=== PATIENT | male | born 1960 | race African-American/Black ===

== ENCOUNTER 2016-04-08 15:32 | Emergency (ER) | payer OTHER ==
[~2016-04-08] VITALS: Ht 188 cm; Wt 104.1 kg
[2016-04-08 15:34] VITALS: BP 177/103; PULSE 83; RESP 12; TEMP 98.3; O2SAT 96
--- NOTE | 2016-04-08 16:11 | PD ---
HPI Chief Complaint: Injury Time Seen by Provider: 16:06 Travel History International Travel<30 days: No Contact w/Intl Traveler<30days: No Traveled to known affect area: No History of Present Illness HPI 55-year-old male presents to the emergency department for evaluation of right small toe injury that occurred today. He states he stubbed it against a curb. He reports chronic right foot pain and sees a sports medicine doctor who prescribes him tramadol. Patient denies any fevers or chills. He states he has a history of hypertension, but is not currently on any medications for this. He states that Tylenol and ibuprofen upset his stomach so he cannot take these and declines an injection of Toradol. However, he is requesting tramadol in the emergency department. No other complaints. [facility] Past Medical History Cardiovascular Problems: Yes (HTN) Hypertension: Yes Social History Alcohol Use: Yes (BEER) Tobacco Use: Yes (1/2 PPD) Substance Use: No Allergies-Medications (Allergen,Severity, Reaction): Coded Allergies: No Known Allergies (Unverified , 04/08/16) Reported Meds & Prescriptions Reported Meds & Active Scripts Active No Active Prescriptions or Reported Medications Review of Systems Except as stated in HPI: all other systems reviewed are Neg Physical Exam Narrative GENERAL: Well-developed well-nourished male patient ambulatory. Afebrile., SKIN: Warm and dry. Small ecchymosis noted to the dorsal aspect of the right fifth toe. HEAD: Normocephalic. Atraumatic. EYES: No scleral icterus. No injection or drainage. NECK: Supple, trachea midline. No JVD or lymphadenopathy. CARDIOVASCULAR: Regular rate and rhythm without murmurs, gallops, or rubs. Right pedal pulses 2+. Capillary refills less than 2 seconds to the digits of the right foot. RESPIRATORY: Breath sounds equal bilaterally. No accessory muscle use. Lungs sounds are clear to auscultation. GASTROINTESTINAL: Abdomen soft, non-tender, nondistended. MUSCULOSKELETAL: No cyanosis, or edema. Patient has tenderness over the right fifth toe. BACK: Nontender without obvious deformity. No CVA tenderness. Data Data Last Documented VS Vital Signs Date Time Temp Pulse Resp B/P Pulse Ox O2 Delivery O2 Flow Rate FiO2 04/08/16 15:34 98.3 83 12 177/103 96 Room Air Orders Foot, Complete ([id number]) (04/08/16 ) [facility] Medical Decision Making Medical Screen Exam Complete: Yes Emergency Medical Condition: Yes Medical Record Reviewed: Yes Interpretation(s) x-ray right foot- CONCLUSION: Negative for fracture. Differential Diagnosis Contusion versus sprain versus fracture versus dislocation Narrative Course 55-year-old male presents to the emergency department for evaluation of right fifth toe injury. X-ray of the right foot is ordered and pending. X-ray of the right foot shows no fracture. Exam is consistent with a toe contusion. He is instructed to ice and elevate and follow up with his doctor. The patient was discharged in stable condition with instructions, including return instructions and follow up instructions. Diagnosis Primary Impression: Contusion, toe Qualified Code: S90.121A - Contusion of lesser toe of right foot without damage to nail, initial encounter Referrals: Primary Care Physician call for appointment Patient Instructions: Contusion in Adults (ED), General Instructions Additional Instructions: Ice for 20 mins on, 20 mins off. Elevate. Follow up with your primary care physician. Return to the emergency department for any acute, worsening of symptoms. Med/Other Pt SpecificInfo: No Change to Meds Scripts No Active Prescriptions or Reported Meds Disposition: 01 DISCHARGE HOME Condition: Stable Sultana Arguello Apr 08, 2016 16:11
--- NOTE | 2016-04-08 16:49 | RADRPT ---
EXAM DATE/TIME: 04/08/2016 16:29 [facility] COMPARISON: No previous studies available for comparison. INDICATIONS : Injured 5th digit of right foot today, pain is only in the 5th digit MEDICAL HISTORY : SURGICAL HISTORY : None. ENCOUNTER: Initial ACUITY: 1 day PAIN SCORE: 7/10 LOCATION: Right foot FINDINGS: Three view examination of the right foot demonstrates no soft tissue swelling, dislocation, or fractu re. The tarsal bones appear intact. The interphalangeal and metatarsophalangeal joints are intact. The calcaneus is intact. Bony mineralization is normal. CONCLUSION: Negative for fracture. Eamon Regan MD FACR on April 08, 2016 at 16:47 Board Certified Radiologist. This report was verified electronically.
== END 2016-04-08 17:08 | disposition home or self-care (01) ==
LOC: NEPB 15:32
DX: S90.121A Contusion of right lesser toe(s) without damage to nail, initial encounter (principal); I10 Essential (primary) hypertension; F17.210 Nicotine dependence, cigarettes, uncomplicated; W22.09XA Striking against other stationary object, initial encounter; Y99.8 Other external cause status
CPT/HCPCS: 73630; 99283

== ENCOUNTER 2017-03-26 12:35 | Emergency (ER) | payer SELFPAY ==
[~2017-03-26] VITALS: Ht 188 cm; Wt 99.0 kg
[2017-03-26 12:36] VITALS: BP 147/105; PULSE 89; RESP 18; TEMP 98.5; O2SAT 96
[2017-03-26 13:28] LABS: AUTOMATED NEUTROPHIL # 2.5 TH/MM3 (1.8-7.7); BASOPHIL # 0.1 TH/MM3 (0-0.2); BASOPHIL % 1.3 % (0.0-2.0); EOSINOPHIL # 0.3 TH/MM3 (0-0.4); EOSINOPHIL % 5.2 % (0.0-4.0); HEMATOCRIT 47.9 % (39.0-51.0); HEMOGLOBIN 16.7 GM/DL (13.0-17.0); LYMPH % 38.8 % (9.0-44.0); LYMPHOCYTE # 2.2 TH/MM3 (1.0-4.8); MEAN CELL VOLUME 90.7 FL (80.0-100.0); MEAN CORPUSCULAR HEMOGLOBIN 31.6 PG (27.0-34.0); MEAN CORPUSCULAR HGB CONC 34.8 % (32.0-36.0); MEAN PLATELET VOLUME 7.9 FL (7.0-11.0); MONO % 9.1 % (0.0-8.0); MONOCYTE # 0.5 TH/MM3 (0-0.9); NEUT % 45.6 % (16.0-70.0); PLATELET COUNT 250 TH/MM3 (150-450); RED BLOOD COUNT 5.28 MIL/MM3 (4.50-5.90); WHITE BLOOD COUNT 5.6 TH/MM3 (4.0-11.0)
[2017-03-26 13:44] LABS: ALBUMIN 3.9 GM/DL (3.4-5.0); AST (GOT) 25 U/L (15-37); BLOOD UREA NITROGEN 21 MG/DL (7-18); CALCIUM 9.3 MG/DL (8.5-10.1); CHLORIDE 97 MEQ/L (98-107); CREATININE 1.35 MG/DL (0.60-1.30); GLOMERULAR FILTRATION RATE 67 ML/MIN (>89); GLUCOSE,RANDOM 99 MG/DL (74-106); MAGNESIUM 2.4 MG/DL (1.5-2.5); SODIUM (NA) 131 MEQ/L (136-145)
--- NOTE | 2017-03-26 13:44 | RADRPT ---
EXAM DATE/TIME: 03/26/2017 13:22 [facility] COMPARISON: No previous studies available for comparison. INDICATIONS : Chest pain, dizziness, congestion, fever, and chills. MEDICAL HISTORY : Hypertension. SURGICAL HISTORY : None. ENCOUNTER: Initial ACUITY: 1 day PAIN SCORE: 5/10 LOCATION: Bilateral chest FINDINGS: PA and lateral views of the chest demonstrate the lungs to be symmetrically aerated without evidence of mass, infiltrate or effusion. The cardiomediastinal contours are unremarkable. Osseous structure s are intact. CONCLUSION: No acute disease. Jack Bustamante MD on March 26, 2017 at 13:42 Board Certified Radiologist. This report was verified electronically.
[2017-03-26 13:46] LABS: ALT (GPT) 28 U/L (12-78)
[2017-03-26 13:49] LABS: ALKALINE PHOSPHATASE 83 U/L (45-117); TOTAL BILIRUBIN ADULT 0.3 MG/DL (0.2-1.0); TOTAL PROTEIN 8.2 GM/DL (6.4-8.2); TROPONIN I LESS THAN 0.02 NG/ML (0.02-0.05)
[2017-03-26] MEDS ORDERED: subutex PO (15:08)
[2017-03-26] MEDS ORDERED: SUBO8MIS SL (15:08)
--- NOTE | 2017-03-26 15:09 | EKG ---
Date Performed: 03/26/2017 Time Performed: 13:12:15 PTAGE: 56 years EKG: Sinus rhythm POSSIBLE LEFT ATRIAL ENLARGEMENT BORDERLINE ECG No significant change from prior electrocardiogram. PREVIOUS TRACING : 07/29/2013 12.10 DOCTOR: Jorje Shelley Interpretating Date/Time 03/26/2017 15:08:30
--- NOTE | 2017-03-26 15:48 | PD ---
HPI Chief Complaint: Chest Pain Time Seen by Provider: 15:06 Travel History International Travel<30 days: No Contact w/Intl Traveler<30days: No Traveled to known affect area: No History of Present Illness HPI 56-year-old male presents to the emergency room for evaluation of flulike symptoms for the past 3 days. Symptoms include generalized weakness, body aches , cough, congestion, fevers, and indigestion. He states he has been getting fevers in the middle the night, requiring him to change his shirt several times. He has a cough but could not get the fluid out of his lungs. He has been taking NyQuil, vitamin C, honey, lemon, and aspirin without any relief in symptoms. He denies chest pain but reports indigestion. Denies any cardiac or lung history. No family history of cardiac disease. He smokes half a pack cigarettes per day. No chronic medical conditions or daily medications. PFSH Past Medical History Medical History: Denies Significant Hx Cardiovascular Problems: Yes (HTN) Hypertension: Yes Influenza Vaccination: No Past Surgical History Surgical History: No Previous Surgery Social History Alcohol Use: No Tobacco Use: Yes (1/2 PPD) Substance Use: No (hx of:takes subutex) Allergies-Medications (Allergen,Severity, Reaction): Coded Allergies: No Known Allergies (Unverified Adverse Reaction, Unknown, 03/26/17) Reported Meds & Prescriptions Reported Meds & Active Scripts Active Reported [subutex] 16 Mg PO DAILY Review of Systems Except as stated in HPI: all other systems reviewed are Neg Physical Exam Narrative GENERAL: Well-nourished, well-developed male in no acute distress. Afebrile. Ambulatory. Resting comfortably in bed. SKIN: Focused skin assessment warm/dry. HEAD: Normocephalic. EYES: No scleral icterus. No injection or drainage. NECK: Supple, trachea midline. No JVD or lymphadenopathy. CARDIOVASCULAR: Regular rate and rhythm without murmurs, gallops, or rubs. RESPIRATORY: Breath sounds equal bilaterally. No accessory muscle use. Coarse lung sounds bilaterally. GASTROINTESTINAL: Abdomen soft, non-tender, nondistended. Data Data Last Documented VS Vital Signs Date Time Temp Pulse Resp B/P (MAP) Pulse Ox O2 Delivery O2 Flow Rate FiO2 03/26/17 12:36 98.5 89 18 147/105 (119) 96 Room Air Orders Orders Ckmb (Isoenzyme) Profile (03/26/17 12:59) Complete Blood Count With Diff (03/26/17 12:59) Comprehensive Metabolic Panel (03/26/17 12:59) Magnesium (Mg) (03/26/17 12:59) Prothrombin Time / Inr (Pt) (03/26/17 12:59) Act Partial Throm Time (Ptt) (03/26/17 12:59) Troponin I (03/26/17 12:59) Lipase (03/26/17 12:59) Chest, Pa & Lat (03/26/17 12:59) Electrocardiogram (03/26/17 12:59) CKMB (03/26/17 12:15) CKMB% (03/26/17 12:15) Influenzae A/B Antigen (03/26/17 15:10) Labs Laboratory Tests Test 03/26/17 12:15 White Blood Count 5.6 TH/MM3 Red Blood Count 5.28 MIL/MM3 Hemoglobin 16.7 GM/DL Hematocrit 47.9 % Mean Corpuscular Volume 90.7 FL Mean Corpuscular Hemoglobin 31.6 PG Mean Corpuscular Hemoglobin Concent 34.8 % Red Cell Distribution Width 14.0 % Platelet Count 250 TH/MM3 Mean Platelet Volume 7.9 FL Neutrophils (%) (Auto) 45.6 % Lymphocytes (%) (Auto) 38.8 % Monocytes (%) (Auto) 9.1 % Eosinophils (%) (Auto) 5.2 % Basophils (%) (Auto) 1.3 % Neutrophils # (Auto) 2.5 TH/MM3 Lymphocytes # (Auto) 2.2 TH/MM3 Monocytes # (Auto) 0.5 TH/MM3 Eosinophils # (Auto) 0.3 TH/MM3 Basophils # (Auto) 0.1 TH/MM3 CBC Comment DIFF FINAL Differential Comment Prothrombin Time 10.0 SEC Prothromb Time International Ratio 1.0 RATIO Activated Partial Thromboplast Time 27.5 SEC Blood Urea Nitrogen 21 MG/DL Creatinine 1.35 MG/DL Random Glucose 99 MG/DL Total Protein 8.2 GM/DL Albumin 3.9 GM/DL Calcium Level 9.3 MG/DL Magnesium Level 2.4 MG/DL Alkaline Phosphatase 83 U/L Aspartate Amino Transf (AST/SGOT) 25 U/L Alanine Aminotransferase (ALT/SGPT) 28 U/L Total Bilirubin 0.3 MG/DL Sodium Level 131 MEQ/L Potassium Level 4.4 MEQ/L Chloride Level 97 MEQ/L Carbon Dioxide Level 27.0 MEQ/L Anion Gap 7 MEQ/L Estimat Glomerular Filtration Rate 67 ML/MIN Total Creatine Kinase 280 U/L Creatine Kinase MB 1.7 NG/ML Troponin I LESS THAN 0.02 NG/ML Lipase 113 U/L MDM Medical Decision Making Medical Screen Exam Complete: Yes Emergency Medical Condition: Yes Medical Record Reviewed: Yes Differential Diagnosis Influenza, CAD unlikely, viral syndrome, pneumonia Narrative Course 56-year-old male presents to the emergency room for evaluation of flulike symptoms for the past 3 days. Symptoms include fatigue, body aches, fevers, nausea, and cough. He denies chest pain. Reports indigestion. Denies any cardiac history. Patient is afebrile and well-appearing in the emergency room. Vital signs stable. Physical exam is unremarkable. EKG shows sinus rhythm with a rate of [address] changes. CBC is completely unremarkable. CMP shows evidence of dehydration with low sodium, chloride, and elevated BUN and creatinine. Patient was given 1 L of fluids. Troponin is less than 0.02. Chest x-ray is negative. Influenza is negative. I have low suspicion for CAD. This is viral syndrome. Patient has multiple sick contacts. He was given strict return precautions and told to follow up with her primary care physician or return for worsening symptoms. He understands and agrees to plan. Diagnosis Primary Impression: Viral syndrome Referrals: Primary Care Physician Departure Forms: Tests/Procedures, Work Release Enter return to work date: Mar 29, 2017 Additional Instructions: Rest and drink plenty of fluids. Continue [id number] cough and cold medication as directed. Take ibuprofen with food as directed, as needed for pain. Follow-up with a primary care physician. Return to the emergency room for worsening symptoms. Med/Other Pt SpecificInfo: Prescription(s) given Disposition: 01 DISCHARGE HOME Condition: Stable Trini Weiss Mar 26, 2017 15:48
== END 2017-03-26 16:29 | disposition home or self-care (01) ==
LOC: NEPC 12:35
DX: B34.9 Viral infection, unspecified (principal); F17.210 Nicotine dependence, cigarettes, uncomplicated; I10 Essential (primary) hypertension; Z79.899 Other long term (current) drug therapy
CPT/HCPCS: 71046; 80053; 82550; 82552; 83690; 83735; 84484; 85025; 85610; 85730; 87804; 93005; 99285